=== PATIENT | male | born 1970 | race Caucasian/White ===

== ENCOUNTER 2017-06-28 08:03 | Emergency (ER) | payer BC, OTHER ==
[~2017-06-28 08:03] MED LIST: APIX1TAB3 PO; METO25TA56 PO; OMEP10CA2 PO
[2017-06-28 08:12] VITALS: TEMP 36.6
[2017-06-28] MEDS ORDERED: SODIUM CHLORIDE 0.9% 500ML 500 ML IV STA (08:13)
[2017-06-28] MEDS ORDERED: NITROGLYCERIN 2% OINTMENT 30GM TUBE EXT ONE (08:15)
[2017-06-28] MEDS ORDERED: PRLSR20 PO (08:20)
--- NOTE | 2017-06-28 08:30 | EMERGENCY ROOM VISIT NOTE ---
History Report prepared by Marielena: Shahana Egan Under the Supervision of: Dr. Dean Carmona M.D. First contact with patient: 08:07 Chief Complaint: IRREGULAR HEARTBEAT Stated Complaint: AFIB History of Present Illness The patient is a 46 year old male who presents to the Emergency Room with complaints of an irregular heart rate since last night. The patient has a history atrial fibrillation and states that he can tell when he is having an episode of a-fib. Last night he felt like his heart was "fluttering" and beating irregularly. He checked his HR at home and states that he found himself to be in a-fib. He was able to sleep through the night and was still experiencing symptoms when he woke up this morning. He reports some central chest pain that he states feels like heart burn. He states that he gets this pain with his episodes of a-fib. He rates his pain as an 8/10 in severity. His pain is worse with pressing on his chest. He was short of breath with walking to his car last night but does not feel short of breath at this time. The patient denies any pain radiating into his back, neck, or shoulder. He denies any recent illness. Dr. Rojas is the patient's animal park code enforcement officer. He has had a negative stress test in the past. The patient takes Prilosec, Eliquis, and metoprolol. Source of History: patient Onset: last night Position: chest Symptom Intensity: 8/10 Quality: other (irregular) Timing: constant Associated Symptoms: + chest pain, + SOB, No neck pain, No back pain Review of Systems See HPI for pertinent positives & negatives. A total of 10 systems reviewed and were otherwise negative. Past Medical & Surgical Medical Problems: (1) Atrial fibrillation (2) Kidney stones Family History Heart disease Social History Smoking Status: Never Smoker Alcohol Use: none Marital Status: Housing Status: lives with family Occupation Status: employed Current/Historical Medications Scheduled Apixaban (Eliquis), 5 MG PO BID Metoprolol Tartrate (Lopressor) (Lopressor), 25 MG PO BID Omeprazole (Prilosec), 20 MG PO BID Allergies Coded Allergies: No Known Allergies (Unverified , 08/04/15) Physical Exam Vital Signs Date Time Temp Pulse Resp B/P (MAP) Pulse Ox O2 Delivery O2 Flow Rate FiO2 2/27/18 15:19 73 18 119/59 97 06/28/17 13:07 67 18 116/67 97 Room Air 06/28/17 11:43 65 18 117/70 97 Room Air 06/28/17 10:03 76 18 131/72 97 Room Air 06/28/17 08:59 76 18 125/83 97 Room Air 06/28/17 08:46 79 18 144/87 97 Room Air 06/28/17 08:24 82 06/28/17 08:13 85 20 141/109 98 06/28/17 08:12 96 Room Air 06/28/17 08:12 36.6 83 18 141/109 96 Room Air Physical Exam GENERAL: Patient is in no acute distress. HEENT: No acute trauma, normocephalic atraumatic, mucous membranes moist, no nasal congestion, no scleral icterus. NECK: No stridor, no adenopathy, no meningismus, trachea is midline. LUNGS: Clear to auscultation bilaterally, no wheeze, no rhonchi, breath sounds equal. HEART: Without murmurs gallops or rubs, regular rate and rhythm. ABDOMEN: Soft, nontender, bowel sounds positive, no hernias, no peritonitis. EXTREMITIES: No cyanosis, mild pedal edema, full range of motion of all the joints without pain or difficulty, no signs for acute trauma. NEUROLOGIC: Oriented x 3, no acute motor or sensory deficits, no focal weakness. SKIN: No rash, no jaundice, no diaphoresis. Medical Decision & Procedures ER Provider Diagnostic Interpretation: Radiology results as stated below per my review and radiologist interpretation: CHEST ONE VIEW PORTABLE HISTORY: 46 years-old Male CHEST PAIN acute atypical chest pain COMPARISON: Chest radiograph 02/04/2015 TECHNIQUE: Portable AP view of the chest FINDINGS: Cardiomediastinal and hilar silhouettes are within normal limits. There is no pneumothorax, pleural effusion, focal airspace consolidation or overt pulmonary edema. The bones of the chest appear grossly intact. IMPRESSION: No acute process. The above report was generated using voice recognition software. It may contain grammatical, syntax or spelling errors. Electronically signed by: Saji Mckeon M.D. 06/28/2017 8:47 AM Dictated Date/Time: 06/28/2017 8:46 AM Laboratory Results 06/28/17 08:30 06/28/17 08:30 Test 06/28/17 08:30 06/28/17 09:19 06/28/17 12:04 Red Blood Count 5.99 M/uL (4.7-6.1) Mean Corpuscular Volume 81.8 fL (80-100) Mean Corpuscular Hemoglobin 28.9 pg (25-34) Mean Corpuscular Hemoglobin Concent 35.3 g/dl (32-36) RDW Standard Deviation 39.9 fL (36.4-46.3) RDW Coefficient of Variation 13.3 % (11.5-14.5) Mean Platelet Volume 11.1 fL (7.4-10.4) Anion Gap 8.0 mmol/L (3-11) Estimated GFR () 92.1 Estimated GFR (Non- 79.5 BUN/Creatinine Ratio 12.1 (10-20) Calcium Level 8.9 mg/dl (8.5-10.1) Magnesium Level 2.3 mg/dl (1.8-2.4) Total Bilirubin 0.7 mg/dl (0.2-1) Aspartate Amino Transf (AST/SGOT) 19 U/L (15-37) Alanine Aminotransferase (ALT/SGPT) 44 U/L (12-78) Alkaline Phosphatase 88 U/L (45-117) Total Protein 7.4 gm/dl (6.4-8.2) Albumin 3.7 gm/dl (3.4-5.0) Globulin 3.7 gm/dl (2.5-4.0) Albumin/Globulin Ratio 1.0 (0.9-2) Lipase 275 U/L (73-393) Thyroid Stimulating Hormone (TSH) 1.110 uIu/ml (0.300-4.500) Prothrombin Time 11.0 SECONDS (9.0-12.0) Prothromb Time International Ratio 1.0 (0.9-1.1) Activated Partial Thromboplast Time 27.3 SECONDS (21.0-31.0) Partial Thromboplastin Ratio 1.1 Troponin I < 0.015 ng/ml (0-0.045) Laboratory results reviewed by me. Medications Administered Medications (Trade) Dose Ordered Sig/Fortunato Route Start Time Stop Time Status Last Admin Dose Admin Nitroglycerin (Nitroglycerin 2% Oint) 1 inch NOW ONCE EXT 06/28/17 08:15 06/28/17 08:16 DC 06/28/17 08:39 1 INCH Sodium Chloride 500 ml @ 999 mls/hr Q31M STAT IV 06/28/17 08:13 06/28/17 08:43 DC 06/28/17 08:13 999 MLS/HR ECG Per My Interpretation Indication: palpitations Rate (beats per minute): 81 Rhythm: normal sinus Findings: other (no PVCs, no ST elevation) ED Course 0807: The patient was evaluated in room B9. A complete history and physical exam was performed. 0813: NSS 500 ml @ 999 mls/hr IV 0815: Nitroglycerin 1 inch EXT 0949: I updated the patient and he is doing well. 0951: I discussed the case with Dr. Rojas, the patient's animal park code enforcement officer. He recommends a stress echo, and the patient will have that today at noon. 1006: I updated the patient and he verbalized agreement with the treatment plan. 1456: I spoke with Dr. Elizondo of cardiology. The patient had a negative stress echo. 1457: I reassessed the patient at this time. He is feeling better and resting comfortably. I discussed the results and treatment plan with the patient. I answered all pertaining questions that he had. He expressed understanding and verbalized agreement. The patient will be discharged home. Medical Decision Differential diagnoses includes a-fib, a-flutter, SVT, GA, angina, musculoskeletal pain, anemia, electrolyte imbalance. There is no leukocytosis or concerning anemia. No significant electrolyte abnormality, kidney failure or hepatitis. EKG shows a normal sinus rhythm, no acute ischemia. Cardiac enzyme testing 2 is not consistent with acute cardiac injury. Chest does not show mediastinal widening, pneumonia or pneumothorax. The patient presents because he thought he was in A. fib, he is in a sinus rhythm currently. His cardiac workup is benign. He does have some anterior chest pain but it does seem reproducible. I discussed this case with the patient's animal park code enforcement officer. A stress test was felt appropriate. A stress echo was done and the patient did well, the stress echo was negative. The patient is being discharged with outpatient cardiology follow-up. He was reassured with his testing. He was told he should return with worsening dyspnea or chest pain. Medication Reconcilliation Current Medication List: was personally reviewed by me Blood Pressure Screening Patient's blood pressure: Elevated blood pressure Blood pressure disposition: Elevated BP felt to be situational Consults Time Called: [phone] Consulting Physician: Dr. Rojas Returned Call: [phone] I discussed the case with Dr. Rojas, the patient's animal park code enforcement officer. He recommends a stress echo, and the patient will have that today at noon. Additional Consults: Consulted Physician: Dr. Elizondo Returned Call: [phone] Additional Comments: I spoke with Dr. Elizondo of cardiology. The patient had a negative stress echo. Impression Primary Impression: Precordial chest pain Scribe Attestation The scribe's documentation has been prepared under my direction and personally reviewed by me in its entirety. I confirm that the note above accurately reflects all work, treatment, procedures, and medical decision making performed by me. Departure Information Dispostion Home / Self-Care Referrals Papo Yeh M.D. (PCP) Patient Instructions My [facility] Additional Instructions return for worsening symptoms follow with cardiology stress test today and laboratory heart testing was all ok
--- NOTE | 2017-06-28 08:49 | DIAGNOSTIC IMAGING REPORT ---
CHEST ONE VIEW PORTABLE HISTORY: 46 years-old Male CHEST PAIN acute atypical chest pain COMPARISON: Chest radiograph 02/04/2015 TECHNIQUE: Portable AP view of the chest FINDINGS: Cardiomediastinal and hilar silhouettes are within normal limits. There is no pneumothorax, pleural effusion, focal airspace consolidation or overt pulmonary edema. The bones of the chest appear grossly intact. IMPRESSION: No acute process. The above report was generated using voice recognition software. It may contain grammatical, syntax or spelling errors. Electronically signed by: Saji Mckeon M.D. 06/28/2017 8:47 AM Dictated Date/Time: 06/28/2017 8:46 AM
[2017-06-28 08:58] LABS: HEMOGLOBIN 17.3 g/dL (14.0-18.0); MEAN CELL VOLUME 81.8 fL (80-100); MEAN CORPUSCULAR HEMOGLOBIN 28.9 pg (25-34); MEAN CORPUSCULAR HGB CONC 35.3 g/dl (32-36); MEAN PLATELET VOLUME 11.1 fL (7.4-10.4); PLATELET COUNT 221 K/uL (130-400); RED CELL DISTRIBUTION WIDTH CV 13.3 % (11.5-14.5); RED CELL DISTRIBUTION WIDTH SD 39.9 fL (36.4-46.3); WHITE BLOOD COUNT 7.99 K/uL (4.8-10.8)
[2017-06-28 09:14] LABS: ALBUMIN 3.7 gm/dl (3.4-5.0); ALT/SGPT 44 U/L (12-78); BLOOD UREA NITROGEN 14 mg/dl (7-18); CALCIUM 8.9 mg/dl (8.5-10.1); CARBON DIOXIDE 25 mmol/L (21-32); CREATININE 1.12 mg/dl (0.60-1.40); GLUCOSE 99 mg/dl (70-99); LIPASE 275 U/L (73-393); POTASSIUM 3.7 mmol/L (3.5-5.1); SODIUM 137 mmol/L (136-145)
[2017-06-28 09:29] LABS: ALKALINE PHOSPHATASE 88 U/L (45-117); AST/SGOT 19 U/L (15-37); TOTAL PROTEIN 7.4 gm/dl (6.4-8.2)
[2017-06-28 09:44] LABS: PTT PATIENT 27.3 SECONDS (21.0-31.0)
[2017-06-28 15:19] VITALS: BP 119/59; PULSE 73; O2SAT 97
--- NOTE | 2017-06-28 16:55 | EXERCISE STRESS ECHO ---
*NOTICE TO RECEIVING LIBERTARIAN AGENCY This information is strictly Confidential and protected under [place] law. [place] law prohibits you from making any further disclosure of this information unless further disclosure is expressly permitted by the written consent of the person to whom it pertains or is authorized by law. A general authorization for the release of medical or other information is not sufficient for this purpose. Hospital accepts no responsibility if the information is made available to any other person, INCLUDING THE PATIENT. Interpretation Summary * Name: WEN BOLIVAR JR Study Date: 06/28/2017 01:31 PM BP: 117/81 mmHg * Patient Location: [facility] HR: 77 * : 1970 (M/d/yyyy) Gender: Male Height: 67 in * Age: 46 yrs Ethnicity: [place] Weight: 286 lb * Ordering Physician: Dean Carmona * Referring Physician: Self, Referred * Performed By: Trixie Julian RDCS * * Reason For Study: Chest Pain * BSA: 2.4 m2 * -- Conclusions -- * Left ventricular systolic function is normal. * Normal diastolic function * The right ventricle is borderline dilated. * Right ventricular systolic pressure is normal. * Normal exercise echocardiogram without evidence of inducible ischemia Procedure Details * ECHOEX, CPT #[id number] * ECHO DOPPLER, CPT #[id number] * ECHO COLOR FLOW, CPT #[id number] * A contrast injection of Definity was performed to improve assessment of LV function. * Contrast was injected into an intravenous site in the left arm. * One vial of Definity ultrasound contrast was diluted in normal saline to a total volume of 10 ml. A total of '4' ml of solution was administered during imaging. * Lot # [id number] of Definity utilized for procedure. * Expiration date . * The attending nurse who injected the contrast agent was MAE Figueroa. Left Ventricular Findings with Stress * Normal exercise echocardiogram without evidence of inducible ischemia Left Ventricle * The left ventricle is normal in size. * There is normal left ventricular wall thickness. * Ejection Fraction = 60-65%. * Left ventricular systolic function is normal. * Normal diastolic function * The left ventricular wall motion is normal at rest. Right Ventricle * The right ventricle is borderline dilated. * The right ventricular systolic function is normal as assessed by tricuspid annular plane systolic excursion (TAPSE) (normal >1.5 cm). Atria * The left atrial size is normal. * Right atrial size is normal. Mitral Valve * The mitral valve is grossly normal. * Significant mitral regurgitation is absent. Tricuspid Valve * The tricuspid valve is not well visualized, but is grossly normal. * There is trace tricuspid regurgitation. * Right ventricular systolic pressure is normal. Aortic Valve * The aortic valve is normal in structure and function. * The aortic valve is trileaflet. * No hemodynamically significant valvular aortic stenosis. * There is no significant aortic regurgitation. Great Vessels * The aortic root is normal size. Pericardium * There is no pericardial effusion. Stress Parameters * Normal baseline electrocardiogram. * Stress ECG: No ST changes. No arrhythmias. * Rest heart rate was '77' BPM. * Rest blood pressure was '117/81' * Maximum heart rate achieved was 150 bpm. * Maximum heart rate was 85 % of maximum age-predicted heart rate. * Maximum blood pressure was '150/89' * Total exercise time was '09:57' * Maximum exercise MET level achieved was '11.60' METS * Maximum treadmill speed was '4.20' miles per hour. * Maximum treadmill elevation was '16.00'% grade. Left Ventricular Findings with Stress * Baseline EKG was normal There are no significant ST or T-wave changes during exercise or recovery Baseline echocardiogram demonstrated normal wall motion There is normal augmentation of all segments at peak exertion No symptoms reported during the test Meyer treadmill score: 9 (low risk) MMode 2D Measurements and Calculations IVSd 1.0 cm IVSs 1.4 cm LVIDd 4.7 cm LVIDs 2.7 cm LVPWd 0.97 cm LVPWs 1.5 cm IVS/LVPW 1.1 FS 42.2 % EDV(Teich) 104.5 ml ESV(Teich) 28.0 ml EF(Teich) 73.2 % EDV(cubed) 106.6 ml ESV(cubed) 20.6 ml EF(cubed) 80.7 % % IVS thick 31.5 % % LVPW thick 57.6 % LV mass(C)d 169.0 grams LV mass(C)dI 71.8 grams/m\S\2 LV mass(C)s 133.5 grams LV mass(C)sI 56.7 grams/m\S\2 SV(Teich) 76.5 ml SI(Teich) 32.5 ml/m\S\2 SV(cubed) 86.1 ml SI(cubed) 36.6 ml/m\S\2 Ao root diam 3.6 cm Ao root area 10.3 cm\S\2 ACS 2.2 cm LA dimension 3.8 cm LA/Ao 1.1 LVAd ap4 38.6 cm\S\2 LVLd ap4 8.7 cm EDV(MOD-sp4) 137.3 ml EDV(sp4-el) 145.4 ml LVAs ap4 19.8 cm\S\2 LVLs ap4 7.5 cm ESV(MOD-sp4) 47.0 ml ESV(sp4-el) 44.5 ml EF(MOD-sp4) 65.8 % EF(sp4-el) 69.4 % LVAd ap2 30.1 cm\S\2 LVLd ap2 8.3 cm EDV(MOD-sp2) 96.0 ml EDV(sp2-el) 92.5 ml LVAs ap2 15.5 cm\S\2 LVLs ap2 6.7 cm ESV(MOD-sp2) 32.1 ml ESV(sp2-el) 30.7 ml EF(MOD-sp2) 66.5 % EF(sp2-el) 66.9 % LVLd %diff -4.52 % EDV(MOD-bp) 116.7 ml LVLs %diff -12.75 % ESV(MOD-bp) 41.1 ml EF(MOD-bp) 64.8 % SV(MOD-sp4) 90.4 ml SI(MOD-sp4) 38.4 ml/m\S\2 SV(MOD-sp2) 63.8 ml SI(MOD-sp2) 27.1 ml/m\S\2 SV(MOD-bp) 75.7 ml SI(MOD-bp) 32.1 ml/m\S\2 SV(sp4-el) 100.9 ml SI(sp4-el) 42.9 ml/m\S\2 SV(sp2-el) 61.9 ml SI(sp2-el) 26.3 ml/m\S\2 Doppler Measurements and Calculations MV E max fidel 82.5 cm/sec MV A max fidel 40.7 cm/sec MV E/A 2.0 MV dec time 0.30 sec Ao V2 max 135.7 cm/sec Ao max PG 7.4 mmHg Ao max PG (full) 3.1 mmHg LV V1 max PG 4.3 mmHg LV V1 max 103.3 cm/sec PA V2 max 97.7 cm/sec PA max PG 3.8 mmHg PI max fidel 135.7 cm/sec PI max PG 7.4 mmHg PI dec slope 139.9 cm/sec\S\2 PI P1/2t 284.1 msec TR max fidel 187.3 cm/sec
== END 2017-06-28 15:20 | disposition home or self-care (01) ==
LOC: C.EDB 08:04
DX: R07.2 Precordial pain (principal); I48.91 Unspecified atrial fibrillation; Z87.442 Personal history of urinary calculi; Z79.01 Long term (current) use of anticoagulants; Z79.899 Other long term (current) drug therapy; Z82.49 Family history of ischemic heart disease and other diseases of the circulatory system

== ENCOUNTER → 2017-08-18 | Outpatient (CLI) | payer OTHER ==
[~2017-08-18] VITALS: Ht 172.7 cm; Wt 291.1 kg
[~2017-08-18] MED LIST changes: -OMEP10CA2 PO; +PRLSR20 PO
[2017-08-18 15:13] VITALS: BP 127/88; PULSE 112; Ht 172.7 cm; Wt 291.1 kg
== END | disposition home or self-care (01) ==
LOC: C.NEUR 14:10
PROVIDERS: ATTEND Internal Medicine Pulmonary Disease
DX: G47.33 Obstructive sleep apnea (adult) (pediatric) (principal); I48.0 Paroxysmal atrial fibrillation; E66.01 Morbid (severe) obesity due to excess calories

== ENCOUNTER → 2017-09-09 | Outpatient (CLI) | payer OTHER ==
--- NOTE | 2017-09-10 06:08 | SPLIT NIGHT TECHNICIAN REPORT ---
[facility] Split Night Polysomnogram - Police Superintendent Report Study date: 09/09/2017 Referring Physician: Dr. Knowles Name: WEN BARRIOS Police Superintendent: BASILIA Miranda. Date of : 1970 Height: 47 years, Height 5' 8" Sex: Male Weight: 291 lbs Age: 47 Neck Circum: 17.5 INCHES BMI: Medications: 44.24 FLUTICASONE PROPIONATE 50 MCG/ACT, RADHA, OMEPRAZOLE 20 MG, ELIQUIS 5 MG, METOPROLOL TARTRATE 25 MG Patient History PATIENT HAS HISTORY OF SNORING, WITNESSED APNEA AND GASPING FOR AIR. HE ALSO HAS HISTORY OF HEADACHES AND AFIB. HE IS HERE TODAY FOR AN EVALUATION FOR LEO. ESS = 8 RM 8 Parameters Monitored NPSG: E1-M2, E2-M1, Fp1-M2, Fp2-M1, F3-M2, F4-M2, F4-M1, C3-M2, C4-M2, C4-M1, O1-M2, O2-M2, O2-M1, T3-M2, T4-M1, P3-M2, P4-M1, CHIN1, CHIN2, HR, EKG, Legs, PFLOW, SNOR, FLOW, CFLOW, Tidal Volume, THOR, ABDO, SpO2, PLTH, CPRESS, ETCO2 Wave, ETCO2, pH SLEEP SUMMARY DATA DIAGNOSTIC TREATMENT Lights Out: 10:02:22 PM 1:22:52 AM Lights On: 1:08:22 AM 5:11:52 AM Total Recording Time (TRT): 187.0 min. 229.5 min. Total Sleep Time (TST): 148.5 min. 180.0 min. NREM Time: 129.0 min. 121.0 min. REM Time: 19.5 min. 59.0 min. Sleep Period Time (SPT): 165.5 min. 186.0 min. Sleep Efficiency (SE): 80 % 79 % Sleep Latency: 20.5 min. 41.0 min. Arousal Index: 8.1 6.3 PAP Treatment Levels: 4, 6, 7, 9, 10, 11, 12 * Optimal Pressure(s) SLEEP STAGING DATA DIAGNOSTIC TREATMENT Duration (min) TST % Duration (min) TST % Stage Wake: 37.5 min. -- 49.0 min. -- WASO: 17.0 min. -- 6.0 min. -- NREM: 129.0 min. 87 % 121.0 min. 67 % Stage N1: 21.5 min. 14 % 5.0 min. 3 % Stage N2: 105.0 min. 71 % 97.5 min. 54 % Stage N3: 2.5 min. 2 % 18.5 min. 10 % REM: 19.5 min. 13 % 59.0 min. 33 % POSITIONAL DATA Event Count Index Event Count Index Supine: 34 108 11 6.5 Supine NREM: 34 107.6 8 8.4 Supine REM: N/A N/A 3 4 Non-Supine: 16 6.9 11 8.3 Non-Supine NREM: 9 4.4 7 6.6 Non-Supine REM: 7 21.5 4 15.5 AROUSAL SUMMARY DATA: Event Count Index Event Count Index Apnea Arousals: 0 0.0 1 0.7 Hypopnea Arousals: 6 2.4 3 1.0 Snore Arousals: 1 0.4 2 0.7 PLM Arousals: 1 0.4 0 0.0 Non-Specific Arousals: 10 4.0 10 3.3 Total Arousals: 20 8.1 19 6.3 MYOCLONUS (PLM) Event Count Index Event Count Index PLM: 11 4.4 0 0.0 PLM AROUSAL: 1 0.4 0 0.0 PLM W/O AROUSAL 11 4.4 0 0.0 PLM W/RESP EVENT 1 0.0 0 0.0 MYOCLONUS (PLM) Event Count Index Event Count Index LM: 1 11.7 21 7.0 LM AROUSAL: 1 0.4 2 0.7 LM W/O AROUSAL LM W/RESP EVENT LM NON SPECIFIC 29 11.7 17 5.7 HEART RATE DATA DIAGNOSTIC TREATMENT Sleep (bpm): 76 69 REM (bpm): 90 93 NREM (bpm): 91 93 Tachycardia Count: 0 0 Tachycardia Duration: 0.00 0 Bradycardia Count: 0 0 Bradycardia Duration: 0.00 0 DIAGNOSTIC PORTION TREATMENT PORTION RESPIRATORY DATA Event Count Index Event Count Index AHI: -- 19.8 -- 7.3 RDI: -- 20.2 -- 7 Obstructive Apnea: 0 0.0 2 0.7 Central Apnea: 0 0.0 0 0.0 Mixed Apnea: 0 0.0 0 0.0 Hypopnea: 49 19.8 20 6.7 RERA: 1 0.4 0 0.0 Total Apneas: 0 0.0 2 0.7 RESPIRATORY DATA REM NREM SLEEP REM NREM SLEEP Supine Position: Obstructive Apneas: N/A 0 0 0 0 0 Central Apneas: N/A 0 0 0 0 0 Mixed Apneas: N/A 0 0 0 0 0 Hypopneas: N/A 34 34 3 8 11 RERA N/A 0 0 0 0 0 Total Supine Events: N/A 34 34 3 8 11 Supine AHI: N/A 107.6 108 4 8.4 6.5 Supine RDI: N/A 107.6 107.6 4.1 8.4 6.5 REM NREM SLEEP REM NREM SLEEP Non-Supine Position: Obstructive Apneas: 0 0 0 0 2 2 Central Apneas: 0 0 0 0 0 0 Mixed Apneas: 0 0 0 0 0 0 Hypopneas: 7 8 15 4 5 9 RERA 0 1 1 0 0 0 Total Supine Events: 7 9 16 4 7 11 Supine AHI: 21.5 4.4 6.9 15.5 6.6 8.3 Supine RDI: 21.5 4.9 7.4 15.5 6.6 8.3 OXYGEN DESTAURATION DATA: Event Count Index Event Count Index REM Desaturations: 7 21.5 8 8.1 NREM Desaturations: 40 18.6 16 7.9 SNORE DATA DIAGNOSTIC TREATMENT Snore Time: 27.4 2:03:52 AM Snore TST%: 10 1 Snore Arousal Count: 1 2 Snore Arousal Index: 0.4 0.7 Desaturation Event Summary: Minimum %SpO2 Event Count Mean/Min/Max Duration(sec.) Desaturation Index % Time In Bed > 90 88 22.0 / 4.0 / 58.5 16.2 79.6 86 - 90 3 18.6 / 11.3 / 28.8 2.2 20.2 81 - 85 1 4.0 / 4.0 / 4.0 94.7 0.2 76 - 80 0 N/A 0.0 0.0 71 - 75 0 N/A 0.0 0.0 66 - 70 0 N/A 0.0 0.0 61 - 65 0 N/A 0.0 0.0 56 - 60 0 N/A 0.0 0.0 51 - 55 0 N/A 0.0 0.0 < 50 0 N/A 0.0 0.0 OXYGEN SATURATION DATA DIAGNOSTIC TREATMENT SpO2 Mean Sleep: 91 % 93 % SpO2 Mean REM: 90 % 93 % SpO2 Mean NREM: 91 % 93 % SpO2 Minimum Sleep: 82 % 83 % SpO2 Minimum REM: 82 % 90 % SpO2 Minimum NREM: 85 % 83 % Time Below 90% (TST): 39.4 0.6 Time Below 88% (TST): 1.9 0.1 Total REM NREM Awake <50% 0.0 min. 0.0 min. 0.0 min. 0.0 min. 51 - 60% 0.0 min. 0.0 min. 0.0 min. 0.0 min. 61 - 70% 0.0 min. 0.0 min. 0.0 min. 0.0 min. 71 - 80% 0.0 min. 0.0 min. 0.0 min. 0.0 min. 81 - 90% 83.2 min. 11.5 min. 69.3 min. 2.4 min. 91 - 100% 325.6 min. 67.0 min. 179.8 min. 78.9 min. Average 92 93 92 94 Minimum SpO2 82 82 83 83 Desaturation Event Index 12.9 11.5 13.4 13.2 # Desat. Events below 89% 38 6 31 1 Time(%) with Saturation below 89% 4.1 0.9 3.1 0.1 Time(min.) with Saturation below 89% 16.9 3.9 12.7 0.3 Recording Police Superintendent Comments: Mr. Barrios slept in the right, left and supine positions. Irregular EKG noted at times. Leg movements noted. No bruxism noted. Snoring was noted and scored as a 3 on a scale of 1 through 5. (0=no snoring, 5=snoring loud enough to be heard through a closed door or down the castillo way) At 1:08 am Mr. Barrios has met specific Split-Night criteria during the diagnostic portion of this study. CPAP was initiated at +4 CMH2O and up-titrated to an optimal level of +12 CMH2O, which nearly eliminated all respiratory events and snoring. A Resmed Mirage Quattro full face size medium mask was used during titration Mr. Barrios awoke to use the restroom 1 time during the night. Mr. Barrios stated I slept as well as I do when I am in my own bed. The final report will be interpreted and signed by a sleep physician. The completed physician report will then be placed in the patient medical record. Therapy Event: Therapy (cm H20) 0 4 6 7 9 10 11 12 Total Time at Pressure (min.) 186.0 5.2 103.8 13.4 10.2 29.0 17.0 50.4 TST at Pressure (min.) 148.5 0.0 67.5 12.9 10.2 29.0 16.0 44.4 # Periods 1 1 1 1 1 1 1 1 Sleep Onset (min.) 20.5 N/A 35.8 0.0 0.0 0.0 0.0 0.0 REM Onset (min.) 132.5 N/A 80.8 N/A N/A N/A 12.4 0.0 Sleep Efficiency % 79 0 65 96 100 100 94 88 Wakefulness (%) 20.2 100.0 35.0 3.7 0.0 0.0 5.9 11.9 Wakefulness (min.) 37.5 5.2 36.3 0.5 0.0 0.0 1.0 6.0 NREM 1 (%) 11.6 0.0 2.4 3.7 0.0 0.0 5.9 2.0 NREM 1 (min.) 21.5 0.0 2.5 0.5 0.0 0.0 1.0 1.0 NREM 2 (%) 56.5 0.0 38.1 92.5 100.0 70.7 61.4 8.9 NREM 2 (min.) 105.0 0.0 39.5 12.4 10.2 20.5 10.4 4.5 NREM 3 (%) 1.3 0.0 9.6 0.0 0.0 29.3 0.0 0.0 NREM 3 (min.) 2.5 0.0 10.0 0.0 0.0 8.5 0.0 0.0 REM (%) 10.5 0.0 14.9 0.0 0.0 0.0 26.8 77.2 REM (min.) 19.5 0.0 15.5 0.0 0.0 0.0 4.6 38.9 # Arousals 20 N/A 3 5 0 2 4 5 Arousal Index 8.1 N/A 2.7 23.3 0.0 4.1 15.0 6.8 # Snore 1,154 N/A 26 13 5 2 6 3 Snore Index 466.3 N/A 23.1 60.7 29.4 4.1 22.5 4.1 AHI 19.8 N/A 6.2 28.0 5.9 2.1 11.3 5.4 AHI Supine 107.6 N/A N/A 95.3 5.9 2.1 11.3 5.4 AHI Non-Supine 6.9 N/A 6.2 20.7 N/A N/A N/A N/A NREM AHI 19.5 N/A 3.5 28.0 5.9 2.1 5.3 32.7 REM AHI 21.5 N/A 15.5 N/A N/A N/A 26.3 1.5 RDI 20.2 N/A 6.2 28.0 5.9 2.1 11.3 5.4 # Obstructive 0 N/A 0 2 0 0 0 0 # Central Ap 0 N/A 0 0 0 0 0 0 # Mixed 0 N/A 0 0 0 0 0 0 # Hypopneas 49 N/A 7 4 1 1 3 4 RERAS 1 N/A 0 0 0 0 0 0 Total Respiratory Events 50 N/A 7 6 1 1 3 4 Time Below SpO2 89.00% (min.) 16.4 0.0 0.0 0.1 0.0 0.1 0.1 0.0 Mean NREM SpO2 (%) 91 N/A 94 93 91 91 92 93 Mean REM SpO2 (%) 90 N/A 94 N/A N/A N/A 92 93 Mean Sleep SpO2 (%) 91 N/A 94 93 91 91 92 93 Min NREM SpO2 (%) 85 N/A 89 88 89 83 87 91 Min REM SpO2 (%) 82 N/A 91 N/A N/A N/A 90 90 Position Supine (min.) 19.0 0.0 0.0 1.3 10.2 29.0 16.0 44.4 Position Non-supine (min.) 129.5 0.0 67.5 11.6 0.0 0.0 0.0 0.0 LM Index Sleep 16.2 N/A 1.8 14.0 0.0 6.2 18.8 10.8 LM Index NREM 16.7 N/A 0.0 14.0 0.0 6.2 15.8 10.9 LM Index REM 12.3 N/A 7.7 N/A N/A N/A 26.3 10.8 Mean Heart Rate (bpm) 76 N/A 70 70 69 69 68 68 Min Heart Rate (bpm) 57 N/A 61 58 60 59 58 57
--- NOTE | 2017-09-14 12:59 | POLYSOMNOGRAPH REPORT ---
CLINICAL DATA: The patient is a 47-year-old male with a history of paroxysmal atrial fibrillation. He also has a history of snoring, observed apneas, and nocturnal gasping. His BMI is elevated at 44.24. This was an in-lab split night sleep study. SLEEP ARCHITECTURE: The study was divided into a diagnostic and treatment portion, utilizing nasal CPAP during the treatment portion. During the diagnostic portion of the study, the sleep period time was 165.5 minutes. The total sleep time was 148.5 minutes. The sleep latency was 20.5 minutes, which is top normal. Sleep efficiency was mildly reduced to 80%. Sleep consisted of stage N1 of 14%, stage N2 of 71%, stage N3 of 2%, stage REM 13%. During the treatment portion of the study, the sleep period time was 186 minutes. The total sleep time was 180 minutes. The sleep efficiency was reduced to 79%. This was mainly related to a delayed sleep latency of 41 minutes. Sleep consisted of stage N1 of 3%, stage N2 of 54%, stage N3 of 10%, stage REM 33%. AROUSAL DATA: During the diagnostic portion of the study, the patient had 20 arousals including 6 hypopnea arousals, 1 snoring arousal, 1 PLM arousal, and 10 nonspecific arousals. The arousal index was 8.1. During the therapeutic portion of the study, the patient had 19 arousals including 1 apnea arousal, 3 hypopnea arousals, 2 snoring arousals, and 10 nonspecific arousals. The arousal index was 6.3. PLM DATA: During the diagnostic portion of the study, the patient had a total of 11 periodic limb movements for a PLM index of 4.4. There was only 1 arousal for a PLM arousal index of 0.4. During the therapeutic portion of the study, there was no periodic limb movements. EKG: The underlying cardiac rhythm was atrial fibrillation. The cardiac rates ranged from 69-93 beats per minute. RESPIRATORY DATA: During the diagnostic portion of the study, the patient had 49 respiratory events, all hypopneas. Hypopneas were scored according to the 4% desaturation rule. There was also 1 RERA. The apnea hypopnea index was moderately elevated at 19.8. This reflects moderate sleep apnea. During the treatment portion of the study, the patient's respiratory events were treated with nasal CPAP. He had a total of 22 respiratory events including 2 obstructive apneas and 20 hypopneas. The apnea hypopnea index was 7.3. At the final pressure of 12 cm, the apnea-hypopnea index was 5.4 events per hour. OXIMETRY DATA: During the diagnostic portion of the study, the mean saturation was 91%. The minimum saturation was 82%. There was only 1.9 minutes with saturations less than 88%. During the treatment portion of the study, the mean saturation was 93%. The minimum saturation was 83%. The time below 88% was only 0.1 minutes. [employer] COMMENTS: Mr. Barrios slept in the right, left, and supine positions. Irregular EKG noted. Leg movements noted. No bruxism noted. Snoring was noted and scored as a 3 on a scale of 1 through 5. At 1:08 a.m., Mr. Barrios has met specific split night criteria for the diagnosis portion of the study. CPAP was initiated at 4 cm and up titrated to an optimal level of 12 cm, which nearly eliminated all respiratory events and snoring. A ResMed Mirage Quattro full face mask, size medium was used during the titration. He awakened to use the restroom one time during the night. He stated that he slept as well as he does in his own bed. IMPRESSION: Moderate obstructive sleep apnea -- improved with nasal CPAP. COMMENTS: The patient had moderate sleep apnea as noted. He met criteria for a split night. His CPAP was titrated up to a final pressure of 12 cm. There was an increase in stage N3 and stage REM sleep during the titration. His oxygen saturations improved. He persisted with a mild number of events at the final pressure. Atrial fib was noted throughout the night. RECOMMENDATIONS: 1. It is advised that he be started on nasal CPAP at 12 cm. 2. It is suggested that he be ordered a ResMed Mirage Quattro full face mask, size medium. 3. If possible, he should avoid sleeping supine. 4. Weight loss is advised in light of the elevation of body mass index of 44.24. 5. The patient should be seen in followup between day 31 and day 90 of being on CPAP.
== END | disposition home or self-care (01) ==
LOC: C.NEUR 21:00
PROVIDERS: ATTEND Internal Medicine Pulmonary Disease
DX: G47.33 Obstructive sleep apnea (adult) (pediatric) (principal); I48.0 Paroxysmal atrial fibrillation; E66.01 Morbid (severe) obesity due to excess calories